=== PATIENT | male | born 1990 | race Hispanic/Latino ===

== ENCOUNTER 2017-01-28 15:13 | Emergency (ER) | payer SELFPAY ==
[~2017-01-28] VITALS: Ht 170.2 cm; Wt 67.0 kg
[2017-01-28] MEDS ORDERED: BACTRIM DS1 TAB PO (15:47)
[2017-01-28] MEDS ORDERED: MOTRIN800 MG PO (15:48)
[2017-01-28 15:57] VITALS: BP 118/66
== END 2017-01-28 16:09 | disposition home or self-care (01) | DRG 603 ==
LOC: ED 15:13
DX: L02.415 Cutaneous abscess of right lower limb (principal)